=== PATIENT | female | born 1960 ===

== ENCOUNTER 2018-11-16 06:40 | Day surgery (SDC) | payer MEDICARE ==
[~2018-11-16 06:40] MED LIST: Buffered Lidocaine 1% SYRIN* 1 ML/SYRINGE INTRADERM ONE; Lactated Ringers 1000 ML Bag* 1,000 ML IV SCH
[2018-11-16] MEDS ORDERED: Lidocaine 2% PF * 5 ML VIAL ONE (07:45)
[2018-11-16] MEDS ORDERED: Midazolam* 1 MG/ML 2 ML VIAL (2 MG) ONE (07:46)
[2018-11-16] MEDS ORDERED: Bupivacaine 0.25% SDV* 30 ML ONE (07:50)
[2018-11-16] MEDS ORDERED: Acetaminophen TAB* 325 MG PO PRN (08:08)
[2018-11-16] MEDS ORDERED: Ketorolac INJ* 30 MG/ML 1 ML VIAL ONE (08:08)
[2018-11-16] MEDS ORDERED: Ondansetron INJ* 2 MG/ML VIAL IV PRN (08:08)
[2018-11-16] MEDS ORDERED: Naloxone* 0.4 MG/ML 1 ML VIAL IV PRN (08:08)
[2018-11-16] MEDS ORDERED: oxyCODONE TAB* 5 MG TAB PO PRN (08:08)
[2018-11-16 09:21] VITALS: BP 105/66
[2018-11-16] MEDS ORDERED: Bupivacaine 0.25% SDV PF* 10 ML VIAL INJ ONE (10:00)
--- NOTE | 2018-11-16 11:53 | OP ---
DATE OF OPERATION: 11/16/18 - [facility] DATE OF : 64 SURGEON: Farhan Jason MD. [employer]: GABY Hernandez. ANESTHESIOLOGIST: Dr. Meredith. ANESTHESIA: Local MAC. PRE-OP DIAGNOSIS: Left index finger dorsal soft tissue mass. POST-OP DIAGNOSIS: Left index finger dorsal soft tissue mass. 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 INDICATIONS: The mass has been growing for some time. It has gotten quite large. It is deforming the nail. We talked about the risks and benefits. She wanted to have it excised. ESTIMATED BLOOD LOSS: 2 mL. COMPLICATIONS: None. FINDINGS: See above and below. DESCRIPTION OF PROCEDURE: Britni was seen in the preoperative holding area. The correct side, site, and procedure were identified. We then came back to the operating room where the arm was prepped and draped in the usual fashion and time out was performed. I had already anesthetized the finger with 0.25% plain Marcaine digital block. I placed the finger tourniquet on the finger. I then made a curvilinear C- shaped incision starting just near the epionychium and curving around the mass out over the dorsum of the middle phalanx. Full-thickness flap was raised right off the mass taking great care not to button hole the skin. I used a Teller blade to perform a marginal excision. The mass came out very cleanly in one piece. This was handed off as the specimen, again it was a solid mass to right down of the extensor tendon and right up the periosteum, again it was a deep mass. Great care was taken to preserve the terminal extensor tendon attachment as well as the sterile matrix. I went ahead and curetted out the area as well just to try to prevent any recurrence. We cauterized any tissue that looked questionable with the Bovie. Wound was irrigated out. Skin was closed with 4-0 nylon suture. Soft dressing was applied, and she was taken to the recovery room in stable condition. [id number]/[facility] #: [id number] [facility]
== END 2018-11-16 09:31 | disposition home or self-care (01) ==
LOC: OREAST 06:40
PROVIDERS: ATTEND Orthopaedic Surgery Hand Surgery
DX: M67.441 Ganglion, right hand (principal); I10 Essential (primary) hypertension; E78.5 Hyperlipidemia, unspecified; F32.9 Major depressive disorder, single episode, unspecified; F41.9 Anxiety disorder, unspecified; M79.7 Fibromyalgia; Z87.891 Personal history of nicotine dependence
CPT/HCPCS: 81025; 88304; J1885; J2250; J3490